=== PATIENT | male | born 1960 | race American Indian/Alaskan Native ===

== ENCOUNTER → 2022-08-11 | Day surgery (SDC) | payer BC, MEDICAID ==
[2022-08-11] VITALS (12 sets, daily range): BP systolic 101–161; BP diastolic 55–102
[~2022-08-11] VITALS: Ht 172.7 cm; Wt 106.6 kg
[~2022-08-11] MED LIST: AMLO5TAB16 PO; BIOTIN; BUPIVAcaine/PF 2.5 mg/ml (0.25%) 30ml vial ONE; HYDROcodone/acetaminophen 10/325mg tab PO PRN; LIDOcaine 1% 30ml preserv. free vial ONE; LIDOcaine 2% (20mg/ml) 5ml vial ONE; LOSA50TA3 PO; MAGNESIUM; OMEG-133 PO; acetaminophen 1,000mg/100ml IV 100 ML IV PRN; cefazolin 2gm/D5W 100mL 100 ML IV ONE; dexamethasone sod phosphate 4mg/ml inj. ONE; diphenhydrAMINE 50 mg/ml inj ONE; famotidine 20mg tablet PO ONE; fentaNYL /PF 50mcg/ml 5ml ampule ONE; glycopyrrolate 0.2mg/ml inj ONE; hydrALAZINE 20mg/ml inj. IV PRN; ketorolac trometh. 30mg/ml inj. IV ONE; labetalol 20mg/4ml (5mg/ml) syringe IV PRN; meperidine/PF 25mg/ml syringe IV PRN; midazolam 1 mg/ML 2ml injection ONE; morphine 2 MG/ML inj. syringe IV PRN; morphine 4 MG/ML inj SYRINge IV PRN; neostigmine methylsulfate 1 MG/ML 10ml vial ONE; ondansetron/PF 4mg/2ml inj IV PRN; ondansetron/PF 4mg/2ml inj ONE; proCHLORperazine 10 MG/2 ml inj IV PRN; propofol inj 20 ML IV ONE; ringers solution, lacted 1,000 ML IV SCH; rocuronium 10mg/ml inj IV ONE; sevoflurane 250ml liquid IH ONE; sugammadex 200mg/2ml injection IV ONE
[2022-08-11 11:05] LABS: BASOPHILS % (AUTO) 0.6 % (0-1); EOSINOPHILS # (AUTO) 0.2 X10'3 (0-0.9); EOSINOPHILS % (AUTO) 2.3 % (0-6); LYMPHOCYTES # (AUTO) 1.4 X10'3 (1.1-4.8); LYMPHOCYTES % (AUTO) 18.6 % (21-51); MEAN CORPUSCULAR HEMOGLOBIN 27.5 PG (27.0-31.0); MEAN CORPUSCULAR HGB CONC 32.4 g/dL (33.0-36.5); MEAN CORPUSCULAR VOLUME 85.1 FL (78-98); MONOCYTES # (AUTO) 0.5 X10'3 (0-0.9); MONOCYTES % (AUTO) 7.1 % (2-12); NEUTROPHILS # (AUTO) 5.5 X10'3 (1.8-7.7); NEUTROPHILS % (AUTO) 71.4 % (42-75); PRE OP HEMATOCRIT 40.1 % (42.0-52.0); PRE OP PLATELET COUNT 249 X10'3 (140-440); RED BLOOD COUNT 4.71 X10'6 (4.70-6.10); RED CELL DISTRIBUTION WIDTH 14.8 % (11.5-14.5)
[2022-08-11 11:19] LABS: ALBUMIN 3.7 G/DL (3.4-5.0); ALBUMIN/GLOBULIN RATIO 1.1 (1.1-1.5); ALKALINE PHOSPHATASE 100 IU/L (46-116); BLOOD UREA NITROGEN 24 MG/DL (7-18); BUN/CREATININE RATIO 25.3 (5.4-32.0); CALCIUM 8.6 MG/DL (8.5-10.1); CHLORIDE 107 MMOL/L (99-107); CREATININE 0.95 MG/DL (0.60-1.10); PRE OP ALT 18 U/L (30-65); PRE OP ANION GAP 5 (8-16); PRE OP AST 9 U/L (10-37); PRE OP BILIRUB, TOTAL 0.8 MG/DL (0.0-1.0); PRE OP GLUCOSE 103 MG/DL (70-104); PRE OP POTASSIUM 3.8 MMOL/L (3.4-5.1); PRE OP SODIUM 141 MMOL/L (135-145); TOTAL CARBON DIOXIDE 28.9 MMOL/L (24-32); TOTAL PROTEIN 7.2 G/DL (6.4-8.2); eGFR 81 ML/MIN
--- NOTE | 2022-08-11 15:45 | NUR ---
PT DESIRES TO USE THE URINAL. INITIATES VOID WITHOUT PROBLEM; 100 ML'S OF OUTPUT, BLADDER SCANNED PT FOR 390. PT ABLE TO VOID MORE AND HAD 180 OUTPUT. D/C PT Addendum: 08/11/22 at 1652 by Pebbles Wasserman RN Amended: Links added.
--- NOTE | 2022-08-11 16:32 | NUR ---
I HAVE REVIEWED D/C INSTRUCTIONS WITH PATIENT AND THEY HAVE VERBALIZED UNDERSTANDING OF INSTRUCTIONS. PATIENT D/C HOME WITH ALL BELONGINGS AND FAMILY GAVE TRANSPORT Addendum: 08/11/22 at 1638 by Pebbles Wasserman RN Amended: Links added.
== END | disposition home or self-care (01) ==
LOC: PAS 10:21
PROVIDERS: ATTEND Surgery
DX: K40.30 Unilateral inguinal hernia, with obstruction, without gangrene, not specified as recurrent (principal); K42.9 Umbilical hernia without obstruction or gangrene; I10 Essential (primary) hypertension; G47.33 Obstructive sleep apnea (adult) (pediatric); E66.9 Obesity, unspecified; Z68.33 Body mass index [BMI] 33.0-33.9, adult; F12.90 Cannabis use, unspecified, uncomplicated; Z96.652 Presence of left artificial knee joint; Z79.899 Other long term (current) drug therapy; Z80.0 Family history of malignant neoplasm of digestive organs; Z82.49 Family history of ischemic heart disease and other diseases of the circulatory system
CPT/HCPCS: 36415; 49592; 49650; 80053; 85025; C1781; J0131; J0690; J1100; J1200; J2175; J2250; J2405; J2704; J2710; J3010; J3490; J7030; J7120; Z7506; Z7508; Z7512; A4215; A4615; A4618

== ENCOUNTER 2022-12-25 23:24 | Emergency (ER) | payer BC, MEDICAID ==
[~2022-12-25] VITALS: Ht 175.3 cm; Wt 100.2 kg
[~2022-12-25 23:24] MED LIST changes: -BUPIVAcaine/PF 2.5 mg/ml (0.25%) 30ml vial ONE; -HYDROcodone/acetaminophen 10/325mg tab PO PRN; -LIDOcaine 1% 30ml preserv. free vial ONE; -LIDOcaine 2% (20mg/ml) 5ml vial ONE; +LOSA-416 PO; -LOSA50TA3 PO; -acetaminophen 1,000mg/100ml IV 100 ML IV PRN; -cefazolin 2gm/D5W 100mL 100 ML IV ONE; -dexamethasone sod phosphate 4mg/ml inj. ONE; -diphenhydrAMINE 50 mg/ml inj ONE; -famotidine 20mg tablet PO ONE; -fentaNYL /PF 50mcg/ml 5ml ampule ONE; -glycopyrrolate 0.2mg/ml inj ONE; -hydrALAZINE 20mg/ml inj. IV PRN; -ketorolac trometh. 30mg/ml inj. IV ONE; -labetalol 20mg/4ml (5mg/ml) syringe IV PRN; -meperidine/PF 25mg/ml syringe IV PRN; -midazolam 1 mg/ML 2ml injection ONE; -morphine 2 MG/ML inj. syringe IV PRN; -morphine 4 MG/ML inj SYRINge IV PRN; -neostigmine methylsulfate 1 MG/ML 10ml vial ONE; -ondansetron/PF 4mg/2ml inj IV PRN; -ondansetron/PF 4mg/2ml inj ONE; -proCHLORperazine 10 MG/2 ml inj IV PRN; -propofol inj 20 ML IV ONE; -ringers solution, lacted 1,000 ML IV SCH; -rocuronium 10mg/ml inj IV ONE; -sevoflurane 250ml liquid IH ONE; -sugammadex 200mg/2ml injection IV ONE
[2022-12-25 23:33] VITALS: TEMP 99.9
[2022-12-26] MEDS ORDERED: normal saline 1000ml 1,000 ML IV ONE (00:15)
[2022-12-26] MEDS ORDERED: loperamide 2mg capsule PO ONE (00:20)
[2022-12-26] MEDS ORDERED: proCHLORperazine 10 MG/2 ml inj IV ONE (00:20)
[2022-12-26] MEDS ORDERED: famotidine/PF 10 mg/ml inj IV ONE (00:20)
[2022-12-26 01:06] LABS: BASOPHILS % (AUTO) 0.5 % (0-1); EOSINOPHILS % (AUTO) 0 % (0-6); HEMOGLOBIN 13.5 g/dl (14.0-17.9); LYMPHOCYTES # (AUTO) 0.3 X10'3 (1.1-4.8); LYMPHOCYTES % (AUTO) 3.6 % (21-51); MEAN CORPUSCULAR HEMOGLOBIN 28.5 PG (27.0-31.0); MEAN CORPUSCULAR HGB CONC 33.7 g/dL (33.0-36.5); MEAN CORPUSCULAR VOLUME 84.7 FL (78-98); MEAN PLATELET VOLUME 7.5 FL (7.4-10.4); MONOCYTES # (AUTO) 0.6 X10'3 (0-0.9); MONOCYTES % (AUTO) 7.1 % (2-12); NEUTROPHILS # (AUTO) 7.3 X10'3 (1.8-7.7); NEUTROPHILS % (AUTO) 88.8 % (42-75); PLATELET COUNT 233 X10'3 (140-440); RED BLOOD COUNT 4.73 X10'6 (4.70-6.10); RED CELL DISTRIBUTION WIDTH 15.4 % (11.5-14.5); WHITE BLOOD COUNT 8.2 X10'3 (4.5-11.0)
[2022-12-26 01:21] LABS: ALANINE AMINOTRANSFERASE 23 U/L (12-78); ALBUMIN 3.6 G/DL (3.4-5.0); ALBUMIN/GLOBULIN RATIO 1.1 (1.1-1.5); ALKALINE PHOSPHATASE 99 IU/L (46-116); ANION GAP 12 (8-16); ASPARTATE AMINO TRANSFERASE 16 U/L (10-37); BILIRUBIN,TOTAL 0.7 MG/DL (0.1-1.0); BLOOD UREA NITROGEN 21 MG/DL (7-18); CALCIUM 8.5 MG/DL (8.5-10.1); CHLORIDE 104 MMOL/L (99-107); CLARITY,URINE CLEAR (Clear); COLOR,URINE YELLOW (Yellow); CREATININE 1.05 MG/DL (0.60-1.10); GLUCOSE 118 MG/DL (70-104); GLUCOSE, URINE NEGATIVE (Neg); KETONES,URINE TRACE mg/dl (Neg); LEUKOCYTE ESTERASE ,URINE NEGATIVE (Neg); LIPASE 737 U/L (73-393); NITRITES, URINE NEGATIVE (Neg); OCCULT BLOOD,URINE TRACE-INTACT (Neg); PROTEIN,URINE 100 mg/dl (Neg); SODIUM 139 MMOL/L (135-145); TOTAL CARBON DIOXIDE 23.3 MMOL/L (24-32); UROBILINOGEN,URINE 0.2 E.U/dL (0.2-1.0); eGFR 72 ML/MIN
[2022-12-26 01:27] LABS: POTASSIUM 2.9 MMOL/L (3.5-5.1)
[2022-12-26] MEDS ORDERED: POTASSIUM BICARB 20meq eff tab 20 MEQ TABLET.EFF PO ONE (01:30)
[2022-12-26 01:54] LABS: UA COLLECTION TYPE CLN CATCH MIDSTREAM
[2022-12-26 02:02] LABS: BACTERIA,URINE FEW /HPF (Neg); RBC,URINE 0-2 /HPF (0-2); WBC,URINE 0-4 /HPF (0-4)
[2022-12-26 02:03] LABS: MUCUS STRANDS NONE SEEN /LPF (Neg); SQUAMOUS EPITHELIAL CELL,UR FEW /LPF (FEW)
[2022-12-26] MEDS ORDERED: LOPE2CAP PO (02:07)
[2022-12-26] MEDS ORDERED: PROC-8 PO (02:07)
[2022-12-26 02:14] VITALS: BP 150/99; PULSE 63; RESP 18; O2SAT 96
== END 2022-12-26 02:18 | disposition home or self-care (01) ==
LOC: ER 23:25
DX: K52.9 Noninfective gastroenteritis and colitis, unspecified (principal); E87.6 Hypokalemia; I10 Essential (primary) hypertension; Z79.899 Other long term (current) drug therapy
CPT/HCPCS: 36415; 80053; 81001; 83690; 84145; 84484; 85025; 96361; 96374; 96375; 99284; J0780; J3490; J7030

== ENCOUNTER 2024-02-08 19:36 | Emergency (ER) | payer MEDICARE, MEDICAID ==
[~2024-02-08] VITALS: Ht 175.3 cm; Wt 110.9 kg
[~2024-02-08 19:36] MED LIST changes: +LOPE2CAP PO; +PROC-8 PO
[2024-02-08 20:02] LABS: BASOPHILS # (AUTO) 0.1 X10'3 (0-0.2); BASOPHILS % (AUTO) 0.8 % (0-1); EOSINOPHILS # (AUTO) 0.2 X10'3 (0-0.9); EOSINOPHILS % (AUTO) 1.5 % (0-6); HEMATOCRIT 43.4 % (42.0-52.0); HEMOGLOBIN 14.3 g/dl (14.0-17.9); LYMPHOCYTES # (AUTO) 2.1 X10'3 (1.1-4.8); LYMPHOCYTES % (AUTO) 19.4 % (21-51); MEAN CORPUSCULAR HEMOGLOBIN 28.3 PG (27.0-31.0); MEAN CORPUSCULAR HGB CONC 32.9 g/dL (33.0-36.5); MEAN CORPUSCULAR VOLUME 85.8 FL (78-98); MEAN PLATELET VOLUME 7.1 FL (7.4-10.4); MONOCYTES # (AUTO) 0.7 X10'3 (0-0.9); MONOCYTES % (AUTO) 6.3 % (2-12); NEUTROPHILS # (AUTO) 7.7 X10'3 (1.8-7.7); PLATELET COUNT 286 X10'3 (140-440); RED BLOOD COUNT 5.05 X10'6 (4.70-6.10); RED CELL DISTRIBUTION WIDTH 15.5 % (11.5-14.5); WHITE BLOOD COUNT 10.7 X10'3 (4.5-11.0)
[2024-02-08 20:17] LABS: ALANINE AMINOTRANSFERASE 26 U/L (12-78); ALBUMIN 3.5 G/DL (3.4-5.0); ALBUMIN/GLOBULIN RATIO 0.9 (1.1-1.5); ALKALINE PHOSPHATASE 103 IU/L (46-116); ANION GAP 8 (8-16); ASPARTATE AMINO TRANSFERASE 15 U/L (10-37); BILIRUBIN,TOTAL 0.6 MG/DL (0.1-1.0); BLOOD UREA NITROGEN 22 MG/DL (7-18); BUN/CREATININE RATIO 17.7 (10.0-20.0); CALCIUM 8.8 MG/DL (8.5-10.1); CHLORIDE 108 MMOL/L (99-107); CREATININE 1.24 MG/DL (0.60-1.10); GLUCOSE 120 MG/DL (70-104); POTASSIUM 3.3 MMOL/L (3.5-5.1); SODIUM 142 MMOL/L (135-145); TOTAL CARBON DIOXIDE 25.6 MMOL/L (24-32); TOTAL PROTEIN 7.2 G/DL (6.4-8.2); eCRCL 62 ML/MIN; eGFR 59 ML/MIN
[2024-02-08 20:25] LABS: PRO BRAIN NATRIURETIC PEPTIDE 1046 PG/ML (0-125)
[2024-02-08 23:06] VITALS: PULSE 76
[2024-02-09] MEDS: potassium Cl 20 mEq SR tablet PO STA (00:30)
[2024-02-09 00:45] VITALS: BP 157/116; RESP 15; TEMP 97.8; O2SAT 100
== END 2024-02-09 01:25 | disposition home or self-care (01) ==
LOC: ER 19:36
DX: I48.91 Unspecified atrial fibrillation (principal); R07.89 Other chest pain; I10 Essential (primary) hypertension; I25.10 Atherosclerotic heart disease of native coronary artery without angina pectoris; Z79.899 Other long term (current) drug therapy
CPT/HCPCS: 36415; 71045; 80053; 83880; 84484; 85025; 93005; 99285

== ENCOUNTER 2024-07-04 08:15 | Day surgery (SDC) | payer MEDICARE, MEDICAID ==
[2024-07-04] VITALS (16 sets, daily range): BP systolic 119–159; BP diastolic 65–96; PULSE 43–65; RESP 15–23; TEMP 98.4; O2SAT 90–98
[~2024-07-04] VITALS: Ht 175.3 cm; Wt 115.3 kg
[2024-07-04] MEDS ORDERED: LOSA50TA64 (08:39)
[2024-07-04] MEDS ORDERED: APIX5TAB3 (08:39)
[2024-07-04] MEDS ORDERED: AMLO10TA13 (08:40)
[2024-07-04] MEDS ORDERED: FLEC50TA (08:41)
[2024-07-04] MEDS ORDERED: MAGN500C4 PO (08:42)
[2024-07-04] MEDS ORDERED: MULT-1249 PO (08:42)
[2024-07-04] MEDS ORDERED: ASCO500C17 PO (08:43)
[2024-07-04] MEDS ORDERED: VITA-268 PO (08:44)
[2024-07-04] MEDS: MIDAZolam 1mg/ml 10ml vial IV ONE (10:31)
[2024-07-04] MEDS: fentaNYL/PF 50MCG/1 ML 2ML syringe IV ONE (10:31)
[2024-07-04] MEDS: normal saline 1000ml 1,000 ML IV SCH (10:32)
== END 2024-07-04 12:30 | disposition home or self-care (01) ==
LOC: SSTAY O 08:15
PROVIDERS: ATTEND Student in an Organized Health Care Education/Training Program
DX: I48.91 Unspecified atrial fibrillation (principal); R00.1 Bradycardia, unspecified; I07.1 Rheumatic tricuspid insufficiency; I11.0 Hypertensive heart disease with heart failure; I50.9 Heart failure, unspecified; Z79.899 Other long term (current) drug therapy; Z98.890 Other specified postprocedural states
CPT/HCPCS: 92960; 93005; J2250; J3010; J7030

== ENCOUNTER 2025-03-20 07:30 | Inpatient (IN) | payer MEDICARE, MEDICAID ==
[2025-03-14 15:25] LABS: MEAN PLATELET VOLUME 7.1 FL (7.4-10.4); PRE OP HEMATOCRIT 41.0 % (42.0-52.0); PRE OP HEMOGLOBIN 13.4 g/dL (14.0-17.9); PRE OP PLATELET COUNT 283 X10'3 (140-440); PRE OP WHITE BLOOD COUNT 7.3 10'3 (4.8-10.8); RED CELL DISTRIBUTION WIDTH 15.5 % (11.5-14.5)
[2025-03-14 15:35] LABS: CREATININE 0.99 MG/DL (0.60-1.10); PRE OP ALT 21 U/L (30-65); PRE OP ANION GAP 6 (8-16); PRE OP AST 16 U/L (10-37); PRE OP BILIRUB, TOTAL 1.1 MG/DL (0.0-1.0); PRE OP GLUCOSE 95 MG/DL (70-104); PRE OP SODIUM 143 MMOL/L (135-145); TOTAL CARBON DIOXIDE 30.9 MMOL/L (24-32); eGFR 76 ML/MIN
[2025-03-14 15:41] LABS: PRE OP POTASSIUM 3.3 MMOL/L (3.4-5.1)
[~2025-03-20] VITALS: Ht 172.7 cm; Wt 115.4 kg
[2025-03-20] VITALS (22 sets, daily range): BP systolic 123–183; BP diastolic 61–121; PULSE 46–64; RESP 11–20; TEMP 97.6–97.8; O2SAT 93–100
[~2025-03-20 07:30] MED LIST changes: +AMLO10TA13 PO; -AMLO5TAB16 PO; +APIX5TAB3 PO; -BIOTIN; -LOPE2CAP PO; -LOSA-416 PO; +LOSA50TA64 PO; -MAGNESIUM; -OMEG-133 PO; -PROC-8 PO; +ROSU5TAB51 PO
[2025-03-20] MEDS ORDERED: bisacodyl 10mg suppository rectal RC PRN (10:30)
[2025-03-20] MEDS ORDERED: ondansetron/PF 4mg/2ml inj IV PRN ×2 (10:30→18:25)
[2025-03-20] MEDS ORDERED: magnesium hydroxide 30ml (MOM) UD suspension PO PRN (10:30)
[2025-03-20] MEDS ORDERED: PCA WASTE DOCUMENTATION 1 MG ML MC SCH (10:30)
[2025-03-20] MEDS ORDERED: BUPIVAcaine 2.5mg/ml inj 50ml vial (contains preservative) ONE (13:44)
--- NOTE | 2025-03-20 13:45 | ELECTROCARDIOGRAPH REPORT ---
[facility] Test Date: 2025-03-20 Test Time: 13:43:30 Pat Name: OSIRIS MCKEON Department: [facility] IN Room: ORTHO [facility] Gender: M Blade Aligner: KEVIN : 1960 Requested By: MARVIN BROTHERS Order Number: [id number] Reading MD: Dr. ANTHONY Thorne Measurements Intervals [place] Rate: 50 P: 25 UT: 221 QRS: -100 QRSD: 142 T: 4 QT: 510 QTc: 466 Interpretive Statements Sinus bradycardia Multiple ventricular premature complexes Prolonged UT interval RBBB and LAFB Electronically Signed On 03-21-2025 19:47:[address] ANTHONY Thorne Please click the below link to view image of tracing.
[2025-03-20] MEDS: ringers solution, lacted 1,000 ML IV SCH ×2 (14:05→18:25)
[2025-03-20] MEDS: VANCOMYCIN/H2O 1.5g/300mL PB 300 ML IV ONE (14:06)
[2025-03-20 14:40] LABS: ISTAT ANION GAP 15.0 (8-12); ISTAT BUN 16.0 mg/dL (7-18); ISTAT CL 103.0 mmol/L (99-107); ISTAT CREATININE 1.0 mg/dL (0.8-1.3); ISTAT GLUCOSE 95.0 mg/dL (70-104); ISTAT HGB 14.6 g/dl (14.0-17.9); ISTAT Hct 43.0 %PCV (42-52); ISTAT IONIZED CALCIUM 1.16 mmol/L (1.03-1.32); ISTAT K 3.1 mmol/L (3.5-5.1); ISTAT NA 142.0 mmol/L (135-145); ISTAT TOTAL CO2 24.0 mmol/L (24-32); ISTAT eGFR 75.0 ML/MIN; POC BUN/CREATININE RATIO 16.0 (5.4-32.0)
[2025-03-20] MEDS: ceFAZolin 2gm/dext,iso 50mL 50 ML IV ONE (16:00)
[2025-03-20] MEDS ORDERED: fentaNYL/PF 50MCG/1 ML 2ML syringe ONE (16:11)
[2025-03-20] MEDS ORDERED: MIDAZolam 1 MG/ML 5ML VIAL ONE (16:12)
[2025-03-20] MEDS ORDERED: glycopyrrolate 0.2mg/ml inj ONE (16:52)
[2025-03-20] MEDS ORDERED: propofol inj 20 ML IV ONE (17:35)
[2025-03-20] MEDS ORDERED: ROPIVAcaine 0.5% (5mg/ml) 30ml vial ONE (17:35)
--- NOTE | 2025-03-20 18:24 | ANESTHESIA RECORDS ---
Nerve Block Providers to CC ~ Diagnosis: Nerve Block requested by: ELEANOR BUSTILLOS MD Neuraxial/Peripheral Nerve Block requested for Post-operative analgesia by Physician above DIAGNOSIS: Post-operative pain. (Body Area) Shoulder: [ ] Arm: [ ] Hand: [ ] Hip: [ ] Knee: [___Left ] Ankle: [ ] Foot: [ ] Leg: [ ] Abdomen: [ ] Other: [ ] Post-operative pain expected to be/is inadequately managed by oral or IV medicines. Regional anesthetic expected to facilitate rehabilitation and/or discharge from facility. Other:[ ] Procedure Performed: Femoral / Saphenous: Left Time out Done?: Yes Time of Time out: 19:15 Procedure Details: PROCEDURE DETAILS: Risks, benefits and alternatives explained Informed consent obtained, and patient wishes to proceed Conscious sedation with indicated monitors Patient positioned, pertinent anatomy defined, sterile technique used Needle used: [ ] 3 1/8 inch Stimuplex Ultra 22ga [x ] 4 inch Stimuplex Ultra 20ga [ ] 6 inch Stimuplex Ultra 20ga [ ] 6 inch, Quikbloc over the needle catheter set 20ga [ ] 4 inch Quikbloc over the needle catheter set 20ga [ ]Other: [ ] Loss of twitch @ [ N/A ___]mA [x ] Single Injection [ ] Catheter Ultrasound Guidance Used: [x ] Yes [ ] No Attempts:[ once ] Medicines injected: [x ]Clonidine Amt:[ 70 mcgs ] [x ]Dexamethasone Amt:[ 3 mgs ] [ x ]Ropivacaine Amt:[ 0.5% 30 cc ] [ ]Bupivacaine Amt:[ ] [ ]Lidocaine Amt:[ ] [ ]Exparel 1.33%:[ ] [ ]Epinephrine Amt[ ] [ ]Other: [ ] Intermittent aspiration during local anesthetic administration No symptoms of intraneural or intravenous injection Patient tolerated procedure well Comments Lt Adductor Canal blk Procedure done after surgery under Spinal anesthesia. Pt supine with Lt leg rotated to Lt slightly. Easy visualization of Adductor Canal with ultra sound anterolateral to Femoral artery at the junction of upper and middle third of thigh. Able to see the tip of the needle and injected local anesthetic with the ultrasound. 5 cc of local anesthetic is injected into nerve to Vastus medialis and few cc is injected into ant femoral cutaneous nerves. No Pain or discomfort during injection. MARVIN BROTHERS MD Mar 20, 2025 18:24
[2025-03-20] MEDS ORDERED: labetalol 20mg/4ml (5mg/ml) syringe IV PRN (18:25)
[2025-03-20] MEDS ORDERED: HYDROmorphone/PF 0.2 MG/ML SYRINGE IV PRN (18:25)
[2025-03-20] MEDS ORDERED: enalaprilat 1.25mg/ml 2ml vial IV PRN (18:25)
[2025-03-20] MEDS ORDERED: fentaNYL/PF 50MCG/1 ML 2ML syringe IV PRN ×2 (18:25)
[2025-03-20] MEDS: potassium cl 20mEq in 1/2 NS 1,000 ML IV SCH (18:30)
--- NOTE | 2025-03-20 19:28 | OPERATIVE REPORT ---
Operative Report Operative Report OPERATIVE REPORT [facility] [address] [place] [address] Date of service: March 20, 2025 PREOPERATIVE DIAGNOSIS [id number] Failure of total knee replacement, initial encounter Z96.652-V43.65 Presence of left artificial knee joint POSTOPERATIVE DIAGNOSIS [id number] Failure of total knee replacement, initial encounter [id number] Presence of left artificial knee joint Operation Performed [id number] Revision, Total Knee Arthroplasty; Femoral/Tibia C with this modifier: [place] [id number] Remote therapeutic monitoring; device supply with scheduled recordings every 30 days. Procedure: Computer-assisted, robotically-assisted, revision left total knee arthroplasty. Removal of unicompartmental arthroplasty, medial compartment. Surgeon: Dr. Damien Henry Ore Fielder: Livia Arellano PA-C Anesthesiologist: Dr. Khan Anesthesia: Spinal anesthetic and regional blocks Indications: 65-year-old male who has chronic osteoarthritis of the left knee with severe pain and limitation of activities despite extensive non-operative management. A unicompartmental arthroplasty was performed some years prior but now the knee is quite symptomatic again. This patient has had extensive conservative treatment of knee joint arthritis, including rest, external joint support, anti-inflammatory medications, physical therapy, and corticosteroid injection. Physical therapy has been provided, along with a home exercise program prior to making the decision to proceed with surgical treatment. This therapeutic intervention did not provide any substantial relief of symptoms or improvement in function. The patient has been utilizing a cane, set of crutches, or walker, for more than 3 months prior to deciding to proceed with surgery. These interventions have not provided sufficient relief of pain to allow improvement in function. The patient has utilized non-steroidal anti- inflammatory medications for relief of pain over an extended period of time (more than 2 months), and has not experienced sufficient improvement in symptoms. Despite these treatments, this patient has continued difficulties with pain and limited function. They are unable to walk long distances, do vigorous activities, sit or sleep comfortably. Total knee replacement is the next reasonable step in terms of treatment. Indications for mri assistant surgeon: A second set of skilled hands with specific orthopedic knowledge of the surgical procedure and orthopedic surgical technique s was necessary to accomplish this operation successfully, and with the least amount of morbidity for the patient. This facilitated operative exposure, manipulation and handling of tissues, placement of any implants, and accomplishment of wound closure. Findings: There was indeed a very severely arthritic knee, with loss of cartilage, exposed bone, and marginal osteophytes. The unicompartmental arthroplasty was in position and did not appear to have signs of loosening or excessive wear. A 12 degree varus deformity and 8 degree flexion contracture were measured preoperatively. Post operative alignment was 2 varus, and 1 degree extension. Complications: None Estimated Blood Loss: 300 cc Implants: A Ankit persona total knee system was utilized with a size nine left femoral component, a size G left tibial component with a smart stem, and a 35 mm oval patellar component. A 16 mm medial constrained right tibial insert was utilized. The [employer] robotically assisted total knee arthroplasty system and computer was utilized. Procedure: The risks, benefits, expected results, and possible complications of the planned procedure had been explained to the patient and informed consent obtained. The patient was taken to the operating room and underwent a spinal anesthetic. The patient was placed in the supine position on the operating table, and the left leg was prepped and draped in the usual fashion. A timeout was taken prior to surgery, confirming patient identification, operative side operative site, planned procedure, administration of pre-operative antibiotics, site marking, and presence of all necessary implants and instruments, x-rays and equipment. A standard surgical approach was performed through the old surgical scar with a medial parapatellar arthrotomy, and a VMO split. Time was then spent removing excessive synovial tissue and exposing the medial and lateral gutters, as well as moving the anterior sections of the residual menisci. The patella was mobilized to be able to be retracted laterally. This gave exposure of the anterior aspect of the knee. Attention was then directed to the patella. An oscillating saw was utilized to make a flat cut in a freehand manner, removing approximately 9 mm of thickness. The patella was then sized and drilled for the appropriate size patella implant. Infrared arrays were then placed on the mid shaft femur anteriorly, and the middle tibia medially. Utilizing the [employer] computer system, the hip, knee, and ankle were landmarked in usual fashion. Land marking was carried out with the unicompartmental arthroplasty component position. The initial alignment measurements were then taken confirming the above listed deformity. Surgical planning was then carried out on the computer, confirming alignment of components, sizing, and gap balancing. Appropriate soft tissue releases were performed. The unicompartmental arthroplasty components were then removed without excessive difficulty. The femoral component was loose with micro motion and poor cement mantle. The tibial component was subsided significantly and also tilted into approximately 15 of anterior tilt with the posterior aspect protruding prominen tly. The saw and cutting block were used to prepare the distal end of the femur utilizing the navigation computer and robot. The distal femoral 4 in 1 block was placed, and the remaining femoral cuts also performed. The computer was then utilized to check longitudinal alignment and soft tissue balance, and this confirmed excellent alignment. The navigational robot was then utilized to position the tibial cutting block and the tibial cut was performed in 5 degrees of flexion and neutral varus/valgus alignment. Finally, attention was directed to the proximal tibia. The implant was sized and properly rotated and the fin punch performed. Final check of alignment and balancing was then carried out, as well as final removal and cleaning up of soft tissue such as meniscal remnants and osteophytes. There were very large cysts in the distal femur and the proximal tibia. Femoral cyst tissue was sent for pathology. It did not look malignant however it was solid as opposed to the tibial cyst which was a liquid filled cyst. There was no evidence of infection. Bone graft was morselized and packed into the femoral defect. Tibial defect was essentially obliterated by instrumentation of the tibia after the tibial cuts. A tourniquet was inflated to 300 mmHg after exsanguination of the leg with an Esmarch. Cement was then mixed; 2 batches were utilized, mixed together, for the tibia, the femur and the patella. The cut surface of the tibia was thoroughly lavaged with the pulsating lavage and then dried. The tibia was impacted with the mallet, seating it quite nicely in its proper rotational alignment. Excess cement was removed from around the margins. The femoral cuts were cleaned with a pulsating lavage and then dried with the lap sponges, and the femur was impacted into position with a mallet. The patella was held firmly in place with a clamp. Excess cement was removed around the margins of the components as the cement cured. Pressure was held on the femoral component and tibia by placing a spacer and bringing the leg to full extension and applying axial and hyperextension force. While cement was curing the knee was also injected with our local anesthetic mixture containing 20ml, 0.5% Ropivicaine, 30 mg of Toradol, and 60 cc of saline. Upon complete hardening of all cement, the knee was inspected and excess cement removed. We lavaged the knee to wash out any debris and checked to make sure we had no impinging cement. The trial spacer was replaced and overall alignment checked with computer, ensuring we had full extension of the knee, and appropriate medial and lateral soft tissue balance, as well as flexion and extension balance. The tourniquet was deflated and hemostasis obtained with electrocautery. The wound was irrigated thoroughly one more time and then dried with lap sponges. The final tibial spacer was impacted and locked into the locking mechanism without difficulty. The retinacular incision was closed with #2 Stratafix suture, and subcutaneous tissue closed with #2-0 Stratafix suture. Skin was closed with 4-0 Stratafix suture. Tourniquet time was 13 minutes. A sterile dressing was applied, and the patient was returned to the recovery room in satisfactory condition. In the recovery area the remote monitoring station was dispensed to the patient and family. Instructions were given for its usage and pick up once the patient got home. We also confirmed the patient had installed the [employer] mobility software, and we ensured that the patient was enrolled in appropriate software platform from our end. Remote monitoring was initiated at the preoperative appointment and the devices used for remote monitoring implanted and dispensed today. Electronically Signed by: Damien Henry MD Doctor, Orthopedic Surgery Signed on: 03/20/2025 07:26 PM DAMIEN HENRY MD Mar 20, 2025 19:28
[2025-03-20 19:33] LABS: BFAPPEAR BLOODY; BFSOURCE OTHER
[2025-03-20 19:34] LABS: BF WBC COUNT 156 /CU MM (0-1000); BFCOLOR RED; BFVOLUME 3 ML
[2025-03-20 19:35] LABS: BF RBC COUNT 516000 /CU MM; LYMPHOCYTES,BODY FLUID 26 %; MONOCYTES,BODY FLUID 10 %; NEUTROPHILS,BODY FLUID 64 %
[2025-03-20] MEDS: HYDROmorphone/PF 0.2 MG/ML SYRINGE IV PRN (20:12)
[2025-03-20] MEDS: morphine 4 MG/ML inj SYRINge IV PRN ×2 (20:38→20:51)
[2025-03-20] MEDS: oxyCODONE IR 5mg (immed. release) tablet PO PRN (22:25)
[2025-03-20] MEDS: ceFAZolin/D5W- 1GM premix 50 ML IV SCH (23:42)
[2025-03-21] VITALS (9 sets, daily range): BP systolic 118–163; BP diastolic 73–90; PULSE 49–68; RESP 15–16; TEMP 96.7–98.1; O2SAT 93–100
[2025-03-21] MEDS: vancomycin/NS 1 GM ADD-VANTAGE 250 ML IV SCH (02:01)
[2025-03-21 05:22] LABS: MEAN PLATELET VOLUME 7.3 FL (7.4-10.4); RED CELL DISTRIBUTION WIDTH 15.4 % (11.5-14.5)
[2025-03-21 06:03] LABS: TOTAL CARBON DIOXIDE 26.4 MMOL/L (24-32)
--- NOTE | 2025-03-21 06:52 | PROGRESS NOTE ---
Progress Note Ortho Ortho Post Op Day #: 1 Follow Up Progress Note Patient was admitted on date of surgery. He had an uneventful overnight stay. He did have some issues with pain control after the spinal wore off however he is now well controlled with oral medication. He has not had the opportunity to work with physical therapy at this morning. He did state that he would like to stay in additional overnight as he does not feel he has not enough help at home. ROS ROS No new complaints Exam Exam: Alert and Oreinted x4, Vital signs are stable, Dressing clean and dry, Wound clean and dry, Distal neurovasc intact, Calves: soft bilaterally, Calves: non-tender bilat Problem/Assessment/Plan Assessment\Plan: Doing Well, Cont. Physicial Therapy Results/Orders Result Diagram: 03/21/25 0423 03/21/25 0423 BABATUNDE LARSON [facility] Mar 21, 2025 06:52
[2025-03-22 05:39] LABS: MEAN PLATELET VOLUME 7.6 FL (7.4-10.4); RED CELL DISTRIBUTION WIDTH 15.8 % (11.5-14.5)
[2025-03-22 06:00] VITALS: BP 133/82; PULSE 52; RESP 16; TEMP 97.8; O2SAT 100
--- NOTE | 2025-03-22 06:42 | DISCHARGE SUMMARY ---
Discharge Summary Ortho CC ~ Discharge Summary Discharge Date: Mar 22, 2025 *Problems/Diagnosis: (1) S/P revision of total knee Status: Acute Admission Diagnosis: Failed Total Knee Arthroplasty, Left Discharge Diagnosis\Comment: see above Operations\Procedures See above Consultants: None Complications: None Condition on DC: Stable Discharge Summary: Patient was admitted on date of surgery, surgery went as planned without complication. Uneventful two night admission. He has worked with physical therapy and has met criteria to be discharged home. Plan to discharge home self care today. Total Time Spent on D/C: Up to 30 Minutes Medications Home Meds: Home Medications Active Reported Rosuvastatin Calcium 5 Mg Tablet 1 Tab PO DAILY Amlodipine Besylate 10 Mg Tablet 1 Tab PO DAILY Losartan Potassium 50 Mg Tablet 1 Tab PO DAILY Eliquis (Apixaban) 5 Mg Tablet 1 Tab PO BID Supervising Physician Supervising Physician: Dr. Damien Henry Problem Qualifiers (1) S/P revision of total knee: Qualified Codes: Z96.652 - Presence of left artificial knee joint BABATUNDE LARSON Mar 22, 2025 06:42
[2025-03-22 07:36] VITALS: RESP 16; O2SAT 99
[2025-03-22 08:06] VITALS: BP 155/82; PULSE 54; PULSE 94; RESP 16; TEMP 98.6; O2SAT 99
[2025-03-22 10:00] VITALS: BP 132/82; PULSE 55; RESP 18; TEMP 97.7; O2SAT 99
[2025-04-01] MEDS ORDERED: ACET-75 PO (01:57)
[2025-04-01] MEDS ORDERED: IBUP600T52 PO (01:57)
[2025-04-01] MEDS ORDERED: OXYC-658 PO (01:57)
== END 2025-03-22 13:30 | disposition home health service (06) | DRG 467 ==
LOC: PAS IN 12:28 → ORTHO 4S 21:50
PROVIDERS: ADMIT Orthopaedic Surgery; ATTEND Orthopaedic Surgery
PROC: 0SRD0J9 Replacement of Left Knee Joint with Synthetic Substitute, Cemented, Open Approach (ICD-10-PCS; 2025-03-20)
PROC: 8E0YXBZ Computer Assisted Procedure of Lower Extremity (ICD-10-PCS; 2025-03-20)
PROC: 3E0T3BZ Introduction of Anesthetic Agent into Peripheral Nerves and Plexi, Percutaneous Approach (ICD-10-PCS; 2025-03-20)
PROC: 3E0T33Z Introduction of Anti-inflammatory into Peripheral Nerves and Plexi, Percutaneous Approach (ICD-10-PCS; 2025-03-20)
PROC: 8E0Y0CZ Robotic Assisted Procedure of Lower Extremity, Open Approach (ICD-10-PCS; 2025-03-20)
PROC: 0SPD0JZ Removal of Synthetic Substitute from Left Knee Joint, Open Approach (ICD-10-PCS; principal; 2025-03-20 16:11)
PROC: 5A09357 Assistance with Respiratory Ventilation, Less than 24 Consecutive Hours, Continuous Positive Airway Pressure (ICD-10-PCS; 2025-03-21)
PROC: 5A09357 Assistance with Respiratory Ventilation, Less than 24 Consecutive Hours, Continuous Positive Airway Pressure (ICD-10-PCS; 2025-03-22)
DX: T84.093A Other mechanical complication of internal left knee prosthesis, initial encounter (principal); D62 Acute posthemorrhagic anemia; Y83.8 Other surgical procedures as the cause of abnormal reaction of the patient, or of later complication, without mention of misadventure at the time of the procedure; Y92.89 Other specified places as the place of occurrence of the external cause
CPT/HCPCS: 36415; 80047; 80051; 80053; 85025; 87070; 87075; 87081; 88305; 89051; 93005; 97116; 97161; 97530; A4618; A6250; A6253; A6258; A6449; A7000; C1713; C1776; G0378; J0690; J1171; J2250; J2270; J2312; J2405; J2704; J2795; J3010; J3373; J3375; J3480; J3490; J7030; J7040; J7120; Q0163